=== PATIENT | female | born 1985 | race Caucasian/White ===

== ENCOUNTER 2017-01-08 23:42 | Inpatient (IN) | payer MEDICAID ==
[~2017-01-08] VITALS: Ht 157.5 cm; Wt 71.3 kg
[2017-01-09] MEDS ORDERED: LACTATED RINGER'S 1,000 ML IV SCH (00:03)
[2017-01-09 00:20] VITALS: Ht 157.5 cm; Wt 71.3 kg
[2017-01-09 00:21] VITALS: BP 139/90; PULSE 65; RESP 18
[2017-01-09 00:22] LABS: ADD SCAN DIFF NO
[2017-01-09] MEDS ORDERED: PREN1TAB62 PO (00:22)
[2017-01-09 00:24] LABS: BASOPHILS % 0.1 % (0.0-2.0); EOSINOPHILS # 0.2 10^3/ul (0.0-0.5); EOSINOPHILS % 1.8 % (0.0-7.0); HEMATOCRIT 36.2 % (37.0-47.0); HEMOGLOBIN 12.6 g/dl (12.0-16.0); LYMPHOCYTES # 2.1 10^3/ul (0.8-2.9); LYMPHOCYTES % 25.5 % (15.0-51.0); MEAN CORPUSCULAR HEMOGLOBIN 32.4 pg (29.0-33.0); MEAN CORPUSCULAR HGB CONC 34.8 g/dl (32.0-37.0); MEAN CORPUSCULAR VOLUME 93.1 fl (82.0-101.0); MEAN PLATELET VOLUME 10.4 fl (7.4-10.4); MONOCYTE # 0.7 10^3/ul (0.3-0.9); MONOCYTES % 8.1 % (0.0-11.0); NEUTROPHIL # 5.2 10^3/ul (1.6-7.5); NEUTROPHILS % 63.8 % (39.0-77.0); PLATELET COUNT 187 10^3/UL (140-415); RED BLOOD COUNT 3.89 10^6/ul (4.20-5.40); RED CELL DISTRIBUTION WIDTH 12.3 % (11.5-14.5); WHITE BLOOD COUNT 8.2 10^3/ul (4.8-10.8)
[2017-01-09] MEDS ORDERED: CARBOPROST 250 MCG INJ IM PRN ×2 (00:30→06:00)
[2017-01-09] MEDS ORDERED: MISOPROSTOL 200 MCG TAB PR PRN ×2 (00:30→06:00)
[2017-01-09] MEDS ORDERED: OXYTOCIN 30 UNITS/LR 500 ML IV PRN ×2 (00:30→06:00)
[2017-01-09] MEDS ORDERED: CEFAZOLIN 2 GM/50 ML (PMX) 50 ML IV SCH (00:30)
[2017-01-09] MEDS ORDERED: METHYLERGONOVINE 0.2 MG INJ IM PRN ×2 (00:30→06:00)
[2017-01-09] MEDS ORDERED: OXYTOCIN 30 UNITS/LR 500 ML IV SCH (00:30)
[2017-01-09 00:35] LABS: INR 0.9; PARTIAL THROMBOPLASTIN TIME 23.5 Sec (25.0-35.0); PROTIME 12.1 Sec (12.2-14.2); PT RATIO 0.9
--- NOTE | 2017-01-09 00:39 | TRIAGE ---
OB Triage Datetime Report Generated by CPN: 01/09/2017 00:39 Datetime: 01/09/2017 00:30 Fall Risk Assessment History of Falling: (0) No Datetime: 01/09/2017 00:20 Assessment Type: Admission Assessment Vaginal Bleeding: None Maternal Assessment Level of Consciousness: Fully Conscious DTR's/Clonus: DTRs 2+; No Clonus Headache: Denies Blurred Vision: No Respiratory Effort: Unlabored; Regular Rhythm; Equal Expansion Breath Sounds, Left: Clear and Equal Breath Sounds, Right: Clear and Equal Nausea/Vomiting: Denies RUQ Epigastric Pain: Denies Facial Edema: None Fall Risk Assessment History of Falling: (0) No Secondary Diagnosis: (0) No Ambulatory Aid: (0) Bedrest/Nurse Assist Gait: (0) Normal/Bedrest/Immobile Mental Status: (0) Oriented to Own Ability Labor Evaluation Frequency: 2-3 Duration (sec)2399: 50-61 Quality: Mild Pattern: Normal: <= 5 Contractions in 10 Minutes Pain Assessment Pain Scale: 4 Pain Location: Back Membrane Status: Ruptured Membranes Ruptured Date/Time: 01/09/2017 21:30 Membranes Rupture Method: Spontaneous Amniotic Fluid Color: Clear Datetime: 01/09/2017 00:16 Assessment Type: Admission Assessment Time of Arrival: 01/09/2017 00:16 EGA: 38.4 Arrived By: Wheelchair Arrived From: Home Chief Complaint: UC'S X1HOUR WITH LEAKING Movement: Decreased Contractions: Regular Contractions: Q5MIN Rupture of Membranes: Ruptured Vaginal Bleeding: None Vaginal Discharge: Present Recent Sexual Intercouse: Denies Abdominal Trauma: Not Applicable Patient Complaints: Contractions Time Provider Notified: 01/08/2017 23:56 Provider Notified: BO Initial Plan: EFM,SVE,STER[facility] SPEC Maternal Assessment Level of Consciousness: Fully Conscious DTR's/Clonus: DTRs 2+; No Clonus Headache: Denies Blurred Vision: No Respiratory Effort: Unlabored; Regular Rhythm; Equal Expansion Breath Sounds, Left: Clear and Equal Breath Sounds, Right: Clear and Equal Nausea/Vomiting: Denies RUQ Epigastric Pain: Denies Lower Extremities Edema: Bilateral Lower Extremities Degree: 1+ Facial Edema: None Fall Risk Assessment History of Falling: (0) No Secondary Diagnosis: (0) No Ambulatory Aid: (0) Bedrest/Nurse Assist Gait: (0) Normal/Bedrest/Immobile Mental Status: (0) Oriented to Own Ability Pain Assessment Pain Scale: 9 Pain Presence: Intermittent Membrane Status: Ruptured Membranes Ruptured Date/Time: 01/08/2017 21:00 Membranes Rupture Method: Spontaneous Amniotic Fluid Color: Clear Amniotic Fluid Amount: Moderate Amniotic Fluid Odor: None Datetime: 01/08/2017 23:48 Vaginal Exam Dilatation (cms): 2.0 Effacement (%): 70 Station: -2 Exam By: TONG Membrane Status: Ruptured Membranes Rupture Method: Spontaneous Amniotic Fluid Color: Clear Amniotic Fluid Amount: Moderate Amniotic Fluid Odor: None Vaginal Bleeding: None Cervix, Consistency: Soft Cervix, Position: Midposition Presentation 'A': Cephalic
[2017-01-09] MEDS ORDERED: ONDANSETRON 4 MG INJ IV STA (00:47)
[2017-01-09] MEDS ORDERED: CITRIC ACID/NA CITRATE 30 ML CUP PO ONE ×2 (01:00→01:30)
[2017-01-09] MEDS ORDERED: morphine SULFATE/PF (10 MG/10 ML) INJ ONE (01:03)
[2017-01-09] MEDS ORDERED: EPHEDrine SULFATE 50 MG/5 ML SYG ONE (01:03)
[2017-01-09] MEDS ORDERED: OXYTOCIN 10 UNIT INJ ONE (01:04)
[2017-01-09] MEDS ORDERED: MIDAZOLAM 1 MG/ML 2 ML INJ ONE (01:04)
[2017-01-09] MEDS ORDERED: LACTATED RINGER'S 1,000 ML IV ONE (01:30)
[2017-01-09] MEDS ORDERED: ONDANSETRON 4 MG INJ IV PRN ×3 (02:00→06:00)
[2017-01-09] MEDS ORDERED: EPHEDrine SULFATE 50 MG/5 ML SYG IV PRN (02:00)
[2017-01-09] MEDS ORDERED: hydrALAzine 20 MG INJ IV PRN (02:00)
[2017-01-09] MEDS ORDERED: MEPERIDINE 25 MG INJ IV PRN (02:00)
[2017-01-09] MEDS ORDERED: HYDROmorphONE 1 MG/ML SYG IV PRN ×2 (02:00)
[2017-01-09] MEDS ORDERED: KETOROLAC 15 MG INJ IV ONE (02:00)
[2017-01-09] MEDS ORDERED: DIPHENHYDRAMINE 50 MG INJ IV PRN ×3 (02:00→06:00)
[2017-01-09] MEDS ORDERED: ZOLPIDEM 5 MG TAB PO PRN ×2 (02:00→06:00)
[2017-01-09] MEDS ORDERED: HYDROmorphONE (0.2 MG/ML) 10ML SYG IV PRN ×3 (02:00)
[2017-01-09] MEDS ORDERED: NALOXONE (0.4 MG/ML) INJ IV PRN (02:00)
--- NOTE | 2017-01-09 02:37 | HP ---
Date/Time of Note Date/Time of Note DATE: 01/09/17 TIME: 02:30 OB - History Hx of Present Free Text/Dictation 31y.o at 38w5d with ruptured membrane and uterine contractions 2-3 min VE 2cm 70% -2 had x2 previous section prepared for repeat section and btl which was already timely consented Chief Complaint: ruptured membrane in learly labor Last Menstrual Period: Apr 20, 2016 Estimated Due Date: Jan 26, 2017 : 3 Para: 2 Spontaneous : 0 Therapeutic : 0 Care: Good Care Ultrasounds: Normal mid trimester US Obstetrical Complications: None Medical Complications: None Past Family/Social History * Past Medical, Surgical, Family and Obstetric Histories reviewed from chart. Blood Type: B+ Rubella: immune RPR/VDRL: Negative GBS Status: Negative HBsAG: Negative OB Admission Exam Vital Signs Vital Signs Vital Signs Date Time Temp Pulse Resp B/P Pulse Ox O2 Delivery O2 Flow Rate FiO2 01/09/17 00:21 97.6 65 18 139/90 Room Air Physical Exam HEENT: WNL Heart: Rhythm Normal Lungs: Clear, Equal Abdomen: WNL Extremities: Normal Reflexes: Normal Cervical Dilatation: 2cm Effacement: 75% Station: -2 Membranes: Ruptured Amniotic Fluid: Clear Heart Rate: 140's Accelerations: Accelerations Present Decelerations: No Decelerations Varibility: Moderate Contractions on Admission: < 5 Minutes Apart Intensity: Moderate Last 72 hours Lab Results CBC & BMP 01/09/17 00:10 OB Assessment/Plan Reason for admission: active labor, rupture of membranes Plan: Section, Other (bilateral tubal ligation) MARINA SORIANO MD Jan 09, 2017 02:37
[2017-01-09] MEDS: KETOROLAC 30 MG INJ IV PRN ×2 (02:50→18:57)
[2017-01-09 05:30] VITALS: BP 103/63; PULSE 63; RESP 20
[2017-01-09] MEDS ORDERED: LANOLIN 7 GM TUBE TOP PRN (06:00)
[2017-01-09] MEDS ORDERED: OXYCODONE/ACETAMINOPHEN (5/325) TAB PO PRN (06:00)
[2017-01-09] MEDS: IBUPROFEN 600 MG TAB PO SCH ×3 (06:00→17:48)
--- NOTE | 2017-01-09 07:05 | OPR ---
DATE OF OPERATION: 01/09/2017 PREOPERATIVE DIAGNOSES: , 38 weeks 5 days, with 2 previous sections, ruptured memmatheus vieira, in labor. POSTOPERATIVE DIAGNOSES: , 38 weeks 5 days, with 2 previous sections ruptured memb isha, in labor, delivered normal male infant, and multiparity. PROCEDURE: Repeat low transverse section and bilateral partial salpingectomy. ANESTHESIA: Spinal. ANESTHESIOLOGIST: Dr. Saldaañ SURGEON: Arnie Reyes MD REPACK ROOM WORKER: Brant Rhodes MD ESTIMATED BLOOD LOSS: Approximately 500 mL. PROCEDURE: Under the proper induction of spinal anesthesia, the patient was placed in frog position . Palacio was inserted under sterile condition and repositioned to supine. Abdominal wall was preppe d and draped in usual aseptic manner. A transverse incision was made along the previous incisional scar. Scar tissue was excised. The incision was carried down through the subcutaneous tissue to th e anterior recti fascia which was incised transversely in length of the incision. Fascial flap was created and the peritoneal cavity was entered. Low portion of the uterus there was no apparent adhe amanda except the bladder peritoneum was pulled up ____ serosa. The low segment was very thin. A tr ansverse incision was made above the uterovesical reflection and incision carried down to the membra ne. Did not reveal much fluid, and the incision was extended bilaterally in semilunar fashion and a normal male was born from right occiput transverse position. Mouth and nose were cleaned an d cord was clamped and cut, handed to the respiratory care personnel for further care. Cord blood w as obtained. Placenta was removed manually. Cavity was completely explored after uterus was exteri orized. The incision was closed with a #1 chromic catgut in continuous manner and second layer usin g 0 chromic catgut including the bladder flap. No bleeder was noted. The right fallopian tube was grasped with a Aurora forceps, created a loop of tube. This loop of tube was doubly ligated with a doubled 2-0 plain loop of tube was excised. The tubal lumen was cauterized. The same procedure wa s done on the left fallopian tube. No bleeding noted. After the irrigation done and uterus was rel ocated into the abdominal cavity, both tubes were checked which was intact. The uterine incision wa s checked and was intact. A piece of Surgicel was laid on the uterine incision. The parietal perit oneum was closed using 0 chromic catgut in continuous manner, muscle closed with 0 chromic catgut in continuous manner. Fascia closed with #1 Vicryl in continuous manner in 2 segments and subcutaneou s tissue irrigated. This layer was approximated with 2-0 plain in continuous manner. The skin clos ed with a 3-0 Monocryl in subcuticular manner. Estimated blood loss 500 mL. Steri-Strips applied. Pressure dressing applied. The patient withstood the procedure well, sent to recovery room in stab le condition. Dictated By: ARNIE COLLAZO/MAYE Conf#: [id number] DID#: [id number]
[2017-01-09 08:12] VITALS: BP 107/62; PULSE 66; RESP 17
[2017-01-09] MEDS: SENNA/DOCUSATE NA (8.6MG/50MG) TAB PO SCH ×2 (08:24→20:56)
[2017-01-09 12:18] VITALS: BP 106/57; PULSE 70; RESP 16
[2017-01-09 15:16] VITALS: BP 107/66; PULSE 79; RESP 17
[2017-01-09 19:45] VITALS: BP 108/57; PULSE 80; RESP 18
[2017-01-10] VITALS: BP 102/72; PULSE 72; RESP 18
[2017-01-10] MEDS: KETOROLAC 30 MG INJ IV PRN (01:10)
[2017-01-10 03:30] VITALS: BP 92/55; PULSE 85; RESP 18
[2017-01-10] MEDS: IBUPROFEN 600 MG TAB PO SCH ×5 (05:45→23:58)
[2017-01-10 07:52] LABS: ADD SCAN DIFF NO
[2017-01-10 08:00] LABS: BASOPHILS % 0.3 % (0.0-2.0); EOSINOPHILS # 0.1 10^3/ul (0.0-0.5); EOSINOPHILS % 1.1 % (0.0-7.0); HEMOGLOBIN 10.7 g/dl (12.0-16.0); LYMPHOCYTES # 1.4 10^3/ul (0.8-2.9); LYMPHOCYTES % 13.7 % (15.0-51.0); MEAN CORPUSCULAR HEMOGLOBIN 31.7 pg (29.0-33.0); MEAN CORPUSCULAR HGB CONC 32.4 g/dl (32.0-37.0); MEAN CORPUSCULAR VOLUME 97.6 fl (82.0-101.0); MEAN PLATELET VOLUME 10.5 fl (7.4-10.4); MONOCYTE # 0.7 10^3/ul (0.3-0.9); MONOCYTES % 6.6 % (0.0-11.0); NEUTROPHIL # 7.7 10^3/ul (1.6-7.5); NEUTROPHILS % 77.9 % (39.0-77.0); PLATELET COUNT 161 10^3/UL (140-415); RED BLOOD COUNT 3.38 10^6/ul (4.20-5.40); RED CELL DISTRIBUTION WIDTH 12.9 % (11.5-14.5); WHITE BLOOD COUNT 9.9 10^3/ul (4.8-10.8)
[2017-01-10 08:15] VITALS: BP 93/55; PULSE 63; RESP 14
[2017-01-10] MEDS ORDERED: INFLUENZA VIRUS VACCINE 0.5 ML (DISPENSING) IM* ONE (09:00)
[2017-01-10] MEDS: SENNA/DOCUSATE NA (8.6MG/50MG) TAB PO SCH ×2 (09:46→23:58)
[2017-01-10] MEDS: OXYCODONE/ACETAMINOPHEN (5/325) TAB PO PRN ×3 (09:55→23:59)
[2017-01-10 16:30] VITALS: BP 100/59; PULSE 64; RESP 16
[2017-01-10 20:00] VITALS: BP 104/62; PULSE 74; RESP 20
[2017-01-11 04:30] VITALS: BP 110/61; PULSE 65; RESP 19
[2017-01-11] MEDS: IBUPROFEN 600 MG TAB PO SCH ×4 (05:48→23:26)
--- NOTE | 2017-01-11 07:49 | PN ---
Date/Time of Note Date/Time of Note DATE: 01/11/17 TIME: 07:47 OB Subjective Subjective Subjective Complains of numbness of right hand.carpal tunnel syndrome.Passes gases ,no BM yet OB Objective Objective Objective Abdomen soft.Incision healing well. HEENT: WNL Heart: Rhythm Normal Lungs: Clear Abdomen: WNL Extremities: Normal Reflexes: Normal ANNIE WOOTEN MD Jan 11, 2017 07:49
[2017-01-11 08:00] VITALS: BP 106/69; PULSE 63; RESP 18
[2017-01-11] MEDS: MAGNESIUM HYDROXIDE 30ML CUP PO SCH ×2 (08:58→21:52)
[2017-01-11] MEDS: SENNA/DOCUSATE NA (8.6MG/50MG) TAB PO SCH ×2 (08:59→21:52)
[2017-01-11] MEDS ORDERED: INFLUENZA VIRUS VACCINE 0.5 ML (DISPENSING) IM* ONE (09:00)
[2017-01-11] MEDS: OXYCODONE/ACETAMINOPHEN (5/325) TAB PO PRN ×2 (12:16→19:30)
[2017-01-11 16:00] VITALS: BP 107/67; PULSE 67; RESP 18
[2017-01-11 19:30] VITALS: BP 112/75; PULSE 65; RESP 18
[2017-01-12 03:52] VITALS: BP 108/62; PULSE 66; RESP 18
[2017-01-12] MEDS: IBUPROFEN 600 MG TAB PO SCH ×2 (05:58→11:24)
[2017-01-12 08:00] VITALS: BP 110/70; PULSE 64; RESP 17
--- NOTE | 2017-01-12 08:31 | PD.PPDC ---
[employer] PILER Discharge Instruction Diagnosis Final Diagnosis: Term .Repeat .Multiparity Condition Patient Condition: Good Diet Diet: Resume Regular Diet Activity/Restrictions Activity: Normal Activity May Shower Restrictions: No Lifting No Driving No Sexual Activity Nothing in the Vagina No [place] Wound/Drain Care Instructions Wound/Drain Care Instructions: Remove Steri Strips in 1 week Keep clean and dry Follow-up Follow-up with Physician: 1, Week/Weeks Return to clinic for CLOUD OPERATIONS ENGINEER Instructions: Fever greater than 101 Worsening abdominal pain Excessive Vaginal Bleeding More than 2 pads per hour Unable to tolerate diet OB Instructions: Depression Surgical Instructions: Incisional Drainage Incisional Redness ANNIE WOOTEN MD Jan 12, 2017 08:31
[2017-01-12] MEDS ORDERED: DIPHTH/TET/ACEL PERTUSS (ADULT) 0.5 ML VIAL IM* ONE (09:00)
[2017-01-12] MEDS: MAGNESIUM HYDROXIDE 30ML CUP PO SCH (09:35)
[2017-01-12] MEDS: SENNA/DOCUSATE NA (8.6MG/50MG) TAB PO SCH (09:35)
--- NOTE | 2017-01-12 12:09 | DS ---
DATE OF ADMISSION: 01/09/2017 DATE OF DISCHARGE: 01/12/2017 FINAL DIAGNOSES: 1. Term intrauterine . 2. Previous x2. 3. In active labor. 4. Multiparity. The patient was treated by Dr. Arnie Soriano who was covering for mn. SUMMARY: This is a 31-year-old female, 3, para 2, who had 2 previous sections and had been scheduled at 39 weeks for repeat section and tubal ligation. She presented in act berto labor and was attended to by Dr. Arnie Soriano who did a repeat section and a tubal ligat ion as planned. Postoperatively, the patient and baby both have done very well. She desires to go home today. She is passing gases and has had no bowel movement yet. However, incision is healing w ell and her abdomen is soft. She has tolerated a regular diet well. She was discharged in good con dition for a followup visit in the office in 1 week. She was given a prescription for [place] 5/325 ( 60 tablets) to use 1 or 2 tablets every 6 hours p.r.n. pain and was given written instructions and a regular diet. She is discharged in good condition. Dictated By: ANNIE WOOTEN MD CR/MAYE Conf#: [id number] DID#: [id number] CC: ARNIE SORIANO MD;*EndCC*
== END 2017-01-12 14:17 | disposition home or self-care (01) | DRG 766 ==
LOC: OBT 23:42 → L-D 23:43 → OBT 01-09 → L-D 01-09 → PP1 01-09 05:15
PROVIDERS: ADMIT Specialist; ATTEND Specialist
PROC: 0UT70ZZ Resection of Bilateral Fallopian Tubes, Open Approach (ICD-10-PCS; 2017-01-09)
PROC: 10D00Z1 Extraction of Products of Conception, Low, Open Approach (ICD-10-PCS; principal; 2017-01-09 01:30)
DX: O34.211 Maternal care for low transverse scar from previous cesarean delivery (principal); Z30.2 Encounter for sterilization; Z3A.38 38 weeks gestation of pregnancy; Z37.0 Single live birth
CPT/HCPCS: 85025; 85610; 85730; 86592; 86850; 86900; 86901; 87340; 88302; 90686; 90715; 99464; G0463; J0690; J1200; J1885; J2250; J2274; J2405; J2590; J7120